=== PATIENT | male | born 1970 | race Caucasian/White ===

== ENCOUNTER 2022-12-13 13:11 | Emergency (ER) | payer MEDICAID ==
[2022-12-13 14:35] LABS: APPEARANCE,URINE CLEAR (CLEAR); BILIRUBIN,URINE NEGATIVE (NEGATIVE); COLOR,URINE YELLOW (YELLOW); GLUCOSE,URINE NEGATIVE (NEGATIVE); KETONES,URINE NEGATIVE (NEGATIVE); LEUKOCYTE ESTERASE,URINE NEGATIVE (NEGATIVE); NITRITE,URINE NEGATIVE (NEGATIVE); OCCULT BLOOD,URINE MODERATE (NEGATIVE); PH,URINE 5.5 (5.0-8.0); PROTEIN,URINE NEGATIVE (NEGATIVE); UROBILINOGEN,URINE 0.2 EU/dL (0.2-1.0)
[2022-12-13 14:41] LABS: AMORPHOUS SEDIMENT,URINE NOT SEEN; BACTERIA,URINE RARE; EPITHELIAL CELLS,URINE NOT SEEN
[2022-12-13 14:42] LABS: MUCUS,URINE NOT SEEN; WBC,URINE NOT SEEN (0-5)
[2022-12-13 15:43] LABS: CREATININE 1.3 mg/dL (0.7-1.3); EST CRCL DRUG DOSING (CG) 67.98 mL/min
[2022-12-13] MEDS: Ondansetron 4 MG Tab.DIS PO ONE (16:42)
[2022-12-13] MEDS: Ketorolac 15 MG/ML SDV IVPUSH ONE (16:43)
[2022-12-13] MEDS: Sodium Chloride 0.9% 1,000 ML IV ONE (16:43)
[2022-12-13] MEDS: Acetaminophen/HYDROcodone 325-5 MG Tab PO ONE (16:50)
[2022-12-13] MEDS: Tamsulosin 0.4 MG Cap.ER PO ONE (16:51)
[2022-12-13] MEDS: Sodium Chloride 0.9% 10 ML Syringe FLUSH PRN (16:51)
== END 2022-12-13 17:21 | disposition home or self-care (01) ==
LOC: JP.ED 13:11
DX: N20.1 Calculus of ureter (principal); N26.1 Atrophy of kidney (terminal); R31.9 Hematuria, unspecified
CPT/HCPCS: 36415; 74176; 81001; 82565; 99284; A9270; J3490; Q0162